=== PATIENT | male | born 1990 | race American Indian/Alaskan Native ===

== ENCOUNTER 2016-12-06 23:35 | Emergency (ER) | payer SELFPAY ==
[2016-12-06 23:42] VITALS: TEMP 97.6; BMI 22.9
--- NOTE | 2016-12-07 00:22 | ED PDOC ---
Arrival/HPI - General Chief Complaint: Altered Mental Status Time Seen by Provider: 12/06/16 23:39 Historian: Patient - History of Present Illness Narrative History of Present Illness (Text): 12/06/16 23:50 Julio Willoughby is a 26 year old male who presents to the Emergency department brought in by EMS for possible substance abuse. Patient states he fell asleep while on the train tonight and does not remember how he got to the hospital. Patient states he feels fine currently. Patient denies any fever, chills, chest pain, shortness of breath, nausea, vomiting, diarrhea, urinary symptoms, back pain, neck pain, headache, dizziness, or any other complaints. Time/Duration: Other (tonight) Symptom Onset: Gradual Symptom Course: Unchanged Activities at Onset: Rest, Light Context: Home Past Medical History - Provider Review Nursing Documentation Reviewed: Yes - Psychiatric Hx Substance Use: Yes Family/Social History - Physician Review Nursing Documentation Reviewed: Yes Family/Social History: Unknown Family HX Smoking Status: Unknown If Ever Smoked Hx Alcohol Use: Yes Hx Substance Use: Yes Allergies/Home Meds Allergies/Adverse Reactions: Allergies No Known Allergies Allergy (Verified 12/07/16 03:26) Home Medications: Home Meds Medication Instructions Recorded Confirmed No Known Home Med 12/07/16 12/07/16 Review of Systems - Physician Review All systems were reviewed & negative as marked: Yes - Review of Systems Constitutional: Normal. absent: Fevers Eyes: Normal ENT: Normal Respiratory: Normal. absent: SOB, Cough Cardiovascular: Normal. absent: Chest Pain Gastrointestinal: Normal. absent: Abdominal Pain, Diarrhea, Nausea, Vomiting Genitourinary Male: Normal. absent: Dysuria, Frequency, Hematuria, Urinary Output Changes Musculoskeletal: Normal. absent: Back Pain, Neck Pain Skin: Normal. absent: Rash Neurological: Normal. absent: Headache, Dizziness Endocrine: Normal Hemo/Lymphatic: Normal Psychiatric: Other (+substance abuse) Physical Exam Vital Signs Reviewed: Yes Vital Signs Temp Pulse Resp BP Pulse Ox 12/07/16 06:17 88 17 139/80 98 12/07/16 03:15 97.6 F 103 H 20 123/76 99 12/06/16 23:40 97.6 F 113 H 16 143/81 98 Temperature: Afebrile Blood Pressure: Normal Pulse: Regular Respiratory Rate: Normal Appearance: Positive for: Well-Appearing, Non-Toxic, Comfortable Pain Distress: None Mental Status: Positive for: Alert and Oriented X 3 - Systems Exam Head: Present: Atraumatic, Normocephalic Pupils: Present: PERRL Extroacular Muscles: Present: EOMI Conjunctiva: Present: Normal Mouth: Present: Moist Mucous Membranes Neck: Present: Normal Range of Motion Respiratory/Chest: Present: Clear to Auscultation, Good Air Exchange. No: Respiratory Distress, Accessory Muscle Use Cardiovascular: Present: Regular Rate and Rhythm, Normal S1, S2. No: Murmurs Abdomen: Present: Normal Bowel Sounds. No: Tenderness, Distention, Peritoneal Signs Back: Present: Normal Inspection Upper Extremity: Present: Normal Inspection. No: Cyanosis, Edema Lower Extremity: Present: Normal Inspection. No: Edema Neurological: Present: GCS=15, CN II-XII Intact, Speech Normal Skin: Present: Warm, Dry, Normal Color. No: Rashes Psychiatric: Present: Alert, Oriented x 3, Normal Insight, Normal Concentration Medical Decision Making ED Course and Treatment: 12/06/16 23:50 Impression: 26 year old male brought in for possible substance abuse. Pt states he currently feels fine. Differential Diagnosis include but are not limited to: substance abuse vs. alcohol intoxication Plan: -- Reassess and disposition Progress Notes: On re-evaluation, the patient feels better and is in no acute distress. I have discussed the results and plan with the patient, who expresses understanding. Patient in agreement with plan to discharged home. Patient is stable for discharge. Patient was instructed to follow up with physician/clinic in 1-2 days or return if symptoms worsen or new concerning symptoms arise. Re-evaluation Time: 06:19 Reassessment Condition: Re-examined, Improved - Medication Orders Current Medication Orders: Discontinued Medications Naloxone HCl (Narcan) 0.4 mg IM STAT STA Stop: 12/07/16 02:42 Naloxone HCl (Narcan) 0.4 mg IVP STAT STA Stop: 12/07/16 03:15 Last Admin: 12/07/16 03:17 Dose: 0.4 mg - Scribe Statement The provider has reviewed the documentation as recorded by the Smithibparker Gregg All medical record entries made by the Smithibparker were at my direction and personally dictated by me. I have reviewed the chart and agree that the record accurately reflects my personal performance of the history, physical exam, medical decision making, and the department course for this patient. I have also personally directed, reviewed, and agree with the discharge instructions and disposition. Disposition/Present on Arrival - Present on Arrival Any Indicators Present on Arrival: No History of DVT/PE: No History of Uncontrolled Diabetes: No Urinary Catheter: No History of Decub. Ulcer: No History Surgical Site Infection Following: None - Disposition Have Diagnosis and Disposition been Completed?: Yes Diagnosis: Lethargy Disposition: HOME/ ROUTINE Disposition Time: 06:20 Condition: GOOD Discharge Instructions (ExitCare): Weakness (ED) Forms: WORK NOTE
[2016-12-07] MEDS ORDERED: Naloxone 0.4 mg/ml Inj (Adult) IM STA (02:41)
[2016-12-07] MEDS ORDERED: Naloxone 0.4 mg/ml Inj (Adult) IVP STA (03:14)
[2016-12-07 06:17] VITALS: BP 139/80; PULSE 88
[2016-12-07 06:27] VITALS: RESP 18; O2SAT 99
--- NOTE | 2016-12-08 10:01 | CARD ---
APPROVED REPORT EKG Measurement Heart [id number] <Conclusion> Normal sinus rhythm Normal ECG
== END 2016-12-07 06:27 | disposition home or self-care (01) ==
LOC: ED 23:35
DX: R53.83 Other fatigue (principal)
CPT/HCPCS: 93005; 96374; 99285; J2310